=== PATIENT | female | born 1960 | race Caucasian/White ===

== ENCOUNTER 2020-12-28 07:37 | Day surgery (SDC) | payer OTHER ==
[~2020-12-28 07:37] MED LIST: Bupivacaine 0.5% 10 ML SDV ONE; Dexamethasone 4 MG/ML 5 ML MDV ONE; Heparin Sodium 100 Units/ML 3 ML Syringe ONE; Iopamidol 408 MG/ML 20 ML SDV ONE; Lactated Ringers 1,000 ML IV SCH; Lidocaine 1% 20 ML MDV ONE; Midazolam 1 MG/ML 2 ML SDV ONE; Octyl 2-Cyanoacrylate 1 Tube ONE; Ondansetron 4 MG/2 ML SDV ONE; Propofol 200 MG/20 ML SDV ONE; Sodium Chloride 0.9% 10 ML SDV IV PRN; Sodium Chloride 0.9% 10 ML Syringe FLUSH PRN; Sodium Chloride 0.9% 2.5 ML Syringe FLUSH PRN; ceFAZolin 2 GM in Premix Bag 1 BAG IV ONE; fentaNYL 100 MCG/2 ML SDV ONE; fentaNYL 250 MCG/5 ML SDV ONE
--- NOTE | 2020-12-28 08:10 | PCM.PREANE ---
Preanesthetic Assessment - Anesthesia/Transfusion/Family Hx Anesthesia History: Prior Anesthesia Without Reaction Type of Anesthesia Reaction: Other (see below) (she did mention that she had coughing after one of her anesthetics, but this is probably related to her postnasl drip. ) Family History of Anesthesia Reaction: No Transfusion History: No Prior Transfusion(s) - Review of Systems General: No Symptoms Pulmonary: No Symptoms Cardiovascular: No Symptoms Gastrointestinal: No Symptoms Neurological: No Symptoms Other: Reports: None - Physical Assessment NPO Status Date: 12/28/20 NPO Status Time: 03:00 Vital Signs: Last Vital Signs Temp 36.2 C 12/28/20 06:45 Pulse 78 12/28/20 06:45 Resp 15 12/28/20 06:45 BP 134/82 12/28/20 06:45 Pulse Ox 94 L 12/28/20 06:45 Height: 1.7 m Weight: 93.44 kg ASA Class: 2 Mental Status: Alert & Oriented x3 Airway Class: Mallampati = 2 Dentition: Reports: Normal Dentition Thyro-Mental Finger Breadths: 3 Mouth Opening Finger Breadths: 3 ROM/Head Extension: Full Lungs: Clear to Auscultation, Normal Respiratory Effort Cardiovascular: Regular Rate, Regular Rhythm - Allergies Allergies/Adverse Reactions: Allergies Allergy/AdvReac Type Severity Reaction Status Date / Time venom-wasp [Wasp Venom] Allergy Anaphylactic Verified 12/27/20 09:06 Shock - Acknowledgements Anesthesia Type Planned: MAC Pt an Appropriate Candidate for the Planned Anesthesia: Yes Alternatives and Risks of Anesthesia Discussed w Pt/Guardian: Yes Pt/Guardian Understands and Agrees with Anesthesia Plan: Yes PreAnesthesia Questionnaire HEENT History: Reports: Other (See Below) Other HEENT History: glasses, dental implants Cardiovascular History: Reports: None Respiratory History: Reports: None Gastrointestinal History: Reports: None Genitourinary History: Reports: None Musculoskeletal History: Reports: Fracture Other Musculoskeletal History: hx fx left wrist & left ankle Neurological History: Reports: None Psychiatric History: Reports: None Endocrine/Metabolic History: Reports: Obesity/BMI 30+ Hematologic History: Reports: None Immunologic History: Reports: None Oncologic (Cancer) History: Reports: Breast (invasive ductal carcinoma) Dermatologic History: Reports: None - Past Surgical History Head Surgeries/Procedures: Reports: None HEENT Surgical History: Reports: None Cardiovascular Surgical History: Reports: None Respiratory Surgical History: Reports: None GI Surgical History: Reports: None Female Surgical History: Reports: Breast Biopsy, Breast Implant, Mastectomy Other Female Surgeries/Procedures: left breast mastectomy followed by breast implant Endocrine Surgical History: Reports: Other (See Below) Other Endocrine Surgeries/Procedures: partial thyroidectomy Neurological Surgical History: Reports: None Musculoskeletal Surgical History: Reports: ORIF Other Musculoskeletal Surgeries/Procedures:: ORIF left ankle, hardware removal Oncologic Surgical History: Reports: Lumpectomy, Mastectomy Dermatological Surgical History: Reports: None - History Comment History Comment: etoh "2x a year". - SUBSTANCE USE Tobacco Use Status *Q: Never Tobacco User Second Hand Smoke Exposure: No Recreational Drug Use History: No - HOME MEDS Home Medications: Home Meds EPINEPHrine [Epipen 2-Yves] 1 injection INJECT ASDIRECTED PRN 07/23/14 [History] Multivit-Min/FA/Lycopene/Lut [Centrum Silver] 1 tab PO DAILY 07/23/14 [History] Biotin 5,000 mcg PO ASDIRECTED 12/27/20 [History] Mills-3/DHA/Epa/Fish Oil [Mills-3 Fish Oil 1,200 MG Sfgl] 1 tab PO ASDIRECTED 12/27/20 [History] minoxidiL [Hair Regrowth Treatment] 1 applic TOP ASDIRECTED 12/27/20 [History] polyethylene glycoL 3350 [MiraLAX] 1 dose PO ASDIRECTED 12/27/20 [History] - CURRENT (IN HOUSE) MEDS Current Meds: Current Medications Lactated Ringer's (Ringers, Lactated) 1,000 mls @ 125 mls/hr IV ASDIRECTED [facility] Last Admin: 12/28/20 07:00 Dose: 125 mls/hr Documented by: Sodium Chloride (Saline Flush) 2.5 ml FLUSH ASDIRECTED PRN PRN Reason: Keep Vein Open Sodium Chloride (Normal Saline) 10 ml IV ASDIRECTED PRN PRN Reason: IV Use Sodium Chloride (Saline Flush) 10 ml FLUSH ASDIRECTED PRN PRN Reason: Keep Vein Open Discontinued Medications Cefazolin Sodium/Dextrose 2 gm (/ Premix) 50 mls @ 100 mls/hr IV ONETIME ONE Stop: 12/27/20 11:13
[2020-12-28] MEDS ORDERED: Octyl 2-Cyanoacrylate 1 Tube ONE (08:28)
[2020-12-28] MEDS ORDERED: Sodium Chloride 0.9% 20 ML ONE (09:05)
[2020-12-28] MEDS ORDERED: ceFAZolin 1 GM Vial ONE (09:05)
--- NOTE | 2020-12-28 09:08 | PCM.OPNOTE ---
- General Post-Op/Procedure Note Date of Surgery/Procedure: 12/28/20 Operative Procedure(s): Right internal jugular port a cath placement Findings: RIJ port Pre Op Diagnosis: Breast cancer Post-Op Diagnosis: Breast cancer Anesthesia Technique: Local, MAC Primary Surgeon: Usha Medrano Fluid Replacement, Intraop: 500 EBL in mLs: 5 Condition: Good
[2020-12-28] MEDS ORDERED: Atropine 0.1 MG/ML 10 ML Syringe IVPUSH PRN ×2 (09:19)
[2020-12-28] MEDS ORDERED: Albuterol 0.083% 2.5 MG/3 ML Neb Soln NEB PRN (09:19)
[2020-12-28] MEDS ORDERED: Naloxone 0.4 MG/ML Syringe IVPUSH PRN (09:19)
[2020-12-28] MEDS ORDERED: fentaNYL 100 MCG/2 ML SDV IVPUSH PRN (09:19)
[2020-12-28] MEDS ORDERED: 50% Dextrose in Water 50 ML Syringe IVPUSH PRN (09:19)
[2020-12-28] MEDS ORDERED: EPINEPHrine 1:10,000 1 MG/10 ML Syringe IVPUSH PRN (09:19)
--- NOTE | 2020-12-28 09:19 | PCM.POSTAN ---
POST ANESTHESIA ASSESSMENT - MENTAL STATUS Mental Status: Alert, Oriented - VITAL SIGNS Vital Signs: Last Vital Signs Temp 36.2 C 12/28/20 06:45 Pulse 65 12/28/20 09:12 Resp 14 12/28/20 09:12 BP 106/67 12/28/20 09:12 Pulse Ox 96 12/28/20 09:12 - RESPIRATORY Respiratory Status: Respiratory Rate WNL, Airway Patent, O2 Saturation Stable - CARDIOVASCULAR CV Status: Pulse Rate WNL, Blood Pressure Stable - GASTROINTESTINAL GI Status: No Symptoms - PAIN Pain Score: 0 - POST OP HYDRATION Hydration Status: Adequate & Stable - OBSERVATIONS Free Text/Narrative:: The patient tolerated the procedure well. Has no complaints at this time. There were no apparent anesthetic complications at this time. Discharge to phase 2.
--- NOTE | 2020-12-28 09:45 | PCM48HPAN ---
Post Anesthesia Note - EVALUATION WITHIN 48HRS OF ANESTHETIC Vital Signs in Normal Range: Yes Patient Participated in Evaluation: Yes Respiratory Function Stable: Yes Airway Patent: Yes Cardiovascular Function Stable: Yes Hydration Status Stable: Yes Pain Control Satisfactory: Yes Nausea and Vomiting Control Satisfactory: Yes Mental Status Recovered: Yes Vital Signs: Last Vital Signs Temp 36.0 C L 12/28/20 09:18 Pulse 65 12/28/20 09:12 Resp 14 12/28/20 09:18 BP 120/64 12/28/20 09:18 Pulse Ox 92 L 12/28/20 09:18 - COMMENTS/OBSERVATIONS Free Text/Narrative:: The patient is doing well. Has no complaints at this time. There were no apparent anesthetic complications at this time. Discharge per criteria.
[2020-12-28 09:54] VITALS: BP 134/82; PULSE 77
--- NOTE | 2020-12-28 09:58 | CR ---
Indication: Port catheter placement Technique: Chest 1 view Comparison: None Findings/Impression: Cardiovascular and mediastinum: Heart size and vasculature are normal in caliber and appearance. Port catheter has been placed with the tip in the mid SVC. Lungs and pleural space: Lungs are clear. No sign of infiltrate or mass. No sign of pleural effusion. No pneumothorax. Bones and soft tissues: No acute findings. Dictated by Louis Corey MD @ Dec 28 2020 9:54AM Signed by Dr. Louis Corey @ Dec 28 2020 9:56AM
--- NOTE | 2020-12-28 11:35 | OR ---
SURGEON: USHA MEDRANO MD DATE OF PROCEDURE: 12/28/2020 PREOPERATIVE DIAGNOSIS: Breast cancer. POSTOPERATIVE DIAGNOSIS: Breast cancer. PROCEDURE PERFORMED: Right internal jugular Port-A-Cath placement. PRIMARY SURGEON: Usha Medrano MD PURSE SEINING HAND: digital sales assistant: Matt Kapadia MD, resident. FLUIDS: 500 mL of crystalloid. ESTIMATED BLOOD LOSS: 5 mL. FINDINGS: Right internal jugular Port-A-Cath placement. COMPLICATIONS: None. INDICATIONS: The patient is a 60-year-old female with a history of left-sided triple-negative breast cancer. She will be starting chemotherapy and is in need of a port. I explained the procedure, expected perioperative course, and the risks. The patient verbalized understanding and wishes to proceed. PROCEDURE IN DETAIL: The patient was brought into the OR and placed on the OR table in supine position. A time-out was completed verifying the patient's name, age, date of , allergies, and procedure to be performed. Both arms were tucked to the patient's side and a shoulder roll placed under the patient's shoulders. Monitored anesthesia care was induced. Using an ultrasound, I verified the vascular anatomy of the right side of the neck. The right neck and chest were prepped and draped in usual standard fashion. The patient was placed into Trendelenburg position. Using a sterile ultrasound probe, I re-identified the vascular anatomy of the right side of the neck. I anesthetized the area overlying the right internal jugular vein and the Port-A-Cath placement tract with a 1:1 mixture of 0.5% Marcaine and 1% lidocaine plain. Using ultrasound guidance, I placed a guide needle into the right internal jugular vein. A good return of venous blood was noted. A guidewire was placed down into the vein and secured to the drapes. C-arm was brought into the field. The guidewire had flipped into the subclavian vein. The guidewire was pulled back under fluoroscopic guidance and directed into the superior vena cava. I then turned my attention to the right side of the chest. Two fingerbreadths below the angle of the clavicle, I made an incision on the chest wall using a 15 blade. Cautery was used to dissect down to level of subcutaneous fat. A subcutaneous pocket was then created for the Port-A-Cath device. I then tunneled the catheter tubing up to the insertion site of the guidewire on the right side of the neck. Using an 11 blade, I made sure that my skin incision was wide enough to accept this catheter and allow dilation of my vascular tract. A vascular sheath and dilator were then placed over the guidewire. Under fluoroscopic guidance, I dilated the venous tract. The guidewire and dilator were removed leaving the vascular sheath in place. The catheter tubing was placed down the vascular sheath into the superior vena cava. The vascular sheath was then peeled away. Using fluoroscopic guidance, I pulled the catheter tubing back into the superior vena cava just above the atriocaval junction. I accessed the catheter tubing on the distal end. A good return of venous blood was noted. I flushed the catheter tubing with injectable saline. The catheter tubing was then trimmed and placed on the Port-A-Cath device. The port was then placed into the chest wall pocket. I accessed the port and had a good return of venous blood. The Port-A-Cath device was then locked with 4 mL of heparinized saline. The Port-A- Cath device was then secured on either side with an interrupted 2-0 Prolene suture. The subcutaneous fat overlying the port was then closed with a running 3-0 Vicryl stitch. The skin was closed with a running 4-0 Monocryl stitch. The skin at the insertion site on the neck was closed with an interrupted 4-0 Monocryl suture. Dermabond and sterile dressings were applied. The patient tolerated the procedure well and was transferred to the PACU in stable condition. All counts were complete and correct at the end of the case. The postoperative chest x-ray in PACU showed no evidence of any pneumothorax or hemothorax. The patient tolerated the procedure well with no acute complications. Post operative chest x-ray showed the Port-A-Cath in good position with no acute complications. REKHA / MANJEET /[id number] MTDDriss
--- NOTE | 2020-12-29 07:40 | CR ---
INDICATION: Port placement. COMPARISON: Same day CXR. TECHNIQUE: Intraoperative fluoroscopic support. FINDINGS: Two spot fluoroscopic images demonstrate a right-sided chest wall MediPort with tip in the SVC. A total of 69 seconds fluoroscopy time was utilized. IMPRESSION: Intraoperative fluoroscopic support for right-sided chest wall MediPort placement. Please see the operative note for additional details. Dictated by Robert Aaron MD @ Dec 29 2020 7:36AM Signed by Dr. Robert Aaron @ Dec 29 2020 7:38AM
== END 2020-12-28 10:00 | disposition home or self-care (01) ==
LOC: MW.SDS 07:37
PROVIDERS: ATTEND Surgery
DX: C50.919 Malignant neoplasm of unspecified site of unspecified female breast (principal); E66.9 Obesity, unspecified; Z91.038 Other insect allergy status; Z79.899 Other long term (current) drug therapy; Z98.890 Other specified postprocedural states; Z68.32 Body mass index [BMI] 32.0-32.9, adult
CPT/HCPCS: 00532; 71045; 71045-26; A9270-GY; J0690; J1100; J1642; J2250; J2405; J2704; J3010; J3490; J7120; Q9966